=== PATIENT | male | born 1965 | race African-American/Black ===

== ENCOUNTER 2017-03-17 13:33 | Emergency (ER) | payer OTHER ==
[~2017-03-17] VITALS: Ht 185.4 cm; Wt 59.9 kg
[2017-03-17] MEDS ORDERED: Morphine Sulfate 2mg/ml Inj IVP ONE (13:45)
[2017-03-17] MEDS ORDERED: NKM (13:49)
--- NOTE | 2017-03-17 13:52 | Emergency Room Report ---
History of Present Illness General Chief Complaint: Pain Source: Patient Present Illness HPI Patient presents with lower extremity pain. He states his happens when the weather changes. He states he's been taking Tylenol which hasn't been helping him. In the past he's had Bruce. He's not had Bruce for the last 2 years. He denies fevers, nausea, vomiting, cough, dyspnea, chest pain, abdominal pain. He states the pain is severe from the thighs down to his knee. Constant. The pain is an ache which is constant. 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 He wears a condom cath. He denies any change in his urine. No fevers, dyspnea, cough, sore throat, rashes (states skin not broken down). No depression. No swelling of calves. Allergies: Coded Allergies: No Known Allergies (Unverified , 03/17/17) Patient History Past Medical History: see triage record Past Surgical History: other - C4 quad post accident Social History: Denies: smoking, alcohol use, drug use Social History Narrative at home Reviewed Nursing Documentation: PMH: Agreed, PSxH: Agreed Review of Systems All Other Systems: negative except mentioned in HPI Physical Exam Vital Signs Date Time Temp Pulse Resp B/P (MAP) Pulse Ox O2 Delivery O2 Flow Rate FiO2 03/17/17 13:47 22 Room Air 03/17/17 14:36 98.0 56 112/74 98 Sp02 EP Interpretation: reviewed, normal General Appearance: GCS 15, thin, Chronically Ill Head: normocephalic Eyes: bilateral eye normal inspection, bilateral eye PERRL ENT: moist mucus membranes Neck: supple Respiratory: lungs clear, normal breath sounds Cardiovascular #1: regular rate, rhythm Cardiovascular #2: 2+ radial (R) Gastrointestinal: normal inspection, normal bowel sounds, non tender, no mass, non-distended Genitourinary: other - condom cath Musculoskeletal: other - Extensor contractures hands, flexor contractures ankels. All muscle groups with atrophy. Neurologic: alert, oriented x3, motor weakness - quadriplegia, sensory deficit - c4 level Psychiatric: mood/affect normal Reflexes: 3+ knee (R), 3+ knee (L) - with clonus and spasticity Skin: normal inspection, warm/dry Medical Decision Making Diagnostic Impression: Primary Impression: Bilateral leg pain Additional Impressions: c4 quadriplgia complete Pyuria ER Course Patient presents with lower extremity pain. Differential includes DVT, cellulitis, exacerbation of chronic pain, abdominal pathology amongst others. Evaluation will be with abdominal films, urinalysis and labs. The patient be treated with IV hydration, Zofran and morphine. Labs unremarkable. UA with pyuria, but collected from condom cath. Abd films with in gas throughout bowels. Improved with norco. Discussed culture of urine and as lack of sy - await results before consider antibiotics. Patient stable for outpatient observation and treatment. Laboratory Tests Test 03/17/17 14:30 White Blood Count 8.3 K/UL (4.8-10.8) Red Blood Count 4.45 M/UL (4.70-6.10) L Hemoglobin 13.1 G/DL (14.2-18.0) L Hematocrit 41.0 % (42.0-52.0) L Mean Corpuscular Volume 92 FL (80-99) Mean Corpuscular Hemoglobin 29.4 PG (27.0-31.0) Mean Corpuscular Hemoglobin Concent 31.9 G/DL (32.0-36.0) L Red Cell Distribution Width 13.7 % (11.6-14.8) Platelet Count 251 K/UL (150-450) Mean Platelet Volume 6.1 FL (6.5-10.1) L Neutrophils (%) (Auto) 68.5 % (45.0-75.0) Lymphocytes (%) (Auto) 19.5 % (20.0-45.0) L Monocytes (%) (Auto) 6.6 % (1.0-10.0) Eosinophils (%) (Auto) 4.8 % (0.0-3.0) H Basophils (%) (Auto) 0.7 % (0.0-2.0) Prothrombin Time 10.2 SEC (9.30-11.50) Prothrombin Time INR 1.0 (0.9-1.1) PTT 32 SEC (23-33) Urine Color Pale yellow Urine Appearance Slightly cloudy Urine pH 6.5 (4.5-8.0) Urine Specific [place] 1.005 (1.005-1.035) Urine Protein Negative (NEGATIVE) Urine Glucose (UA) Negative (NEGATIVE) Urine Ketones Negative (NEGATIVE) Urine Occult Blood Negative (NEGATIVE) Urine Nitrite Positive (NEGATIVE) H Urine Bilirubin Negative (NEGATIVE) Urine Urobilinogen Normal MG/DL (0.0-1.0) Urine Leukocyte Esterase 3+ (NEGATIVE) H Urine RBC 5-10 /HPF (0 - 0) H Urine WBC 5-10 /HPF (0 - 0) H Urine Squamous Epithelial Cells None /LPF (NONE/OCC) Urine Bacteria Many /HPF (NONE) H Sodium Level 140 MMOL/L (136-145) Potassium Level 3.9 MMOL/L (3.5-5.1) Chloride Level 107 MMOL/L (98-107) Carbon Dioxide Level 26 MMOL/L (21-32) Anion Gap 7 mmol/L (5-15) Blood Urea Nitrogen 8 mg/dL (7-18) Creatinine 0.6 MG/DL (0.55-1.30) Estimate Glomerular Filtration Rate > 60 mL/min (>60) Glucose Level 80 MG/DL (74-106) Calcium Level 8.2 MG/DL (8.5-10.1) L Total Bilirubin 1.2 MG/DL (0.2-1.0) H Direct Bilirubin 0.1 MG/DL (0.0-0.3) Aspartate Amino Transferase (AST) 16 U/L (15-37) Alanine Aminotransferase (ALT) 19 U/L (12-78) Alkaline Phosphatase 47 U/L (46-116) Total Protein 7.6 G/DL (6.4-8.2) Albumin 3.4 G/DL (3.4-5.0) Globulin 4.2 g/dL Albumin/Globulin Ratio 0.8 (1.0-2.7) L Lipase 124 U/L (73-393) Last Vital Signs Date Time Temp Pulse Resp B/P (MAP) Pulse Ox O2 Delivery O2 Flow Rate FiO2 03/17/17 16:13 98.0 74 16 114/86 98 Room Air Status: improved Disposition: HOME, SELF-CARE Condition: Improved Scripts Ibuprofen* (MOTRIN*) 600 Mg Tablet 600 MG ORAL Q6H Y for For Pain, #20 TAB Prov: Yoel Cano M.D. 03/17/17 Hydrocodone Bit/Acetaminophen 10-325* (NORCO 10-325*) 1 Each Tablet 1 TAB ORAL Q6H Y for For Pain, #14 TAB 0 Refills PRN PAIN Prov: Yoel Cano M.D. 03/17/17 Yoel Cano M.D. Mar 17, 2017 13:52
[2017-03-17] MEDS ORDERED: Norco 5mg/325mg tab ORAL ONE (14:00)
[2017-03-17] MEDS ORDERED: HYDROcodone/Acetamin 10/325 tab ORAL ONE (14:15)
[2017-03-17 14:36] VITALS: BP 112/74
[2017-03-17 14:46] LABS: BASOPHILS % (AUTO) 0.7 % (0.0-2.0); EOSINOPHILS % (AUTO) 4.8 % (0.0-3.0); HEMOGLOBIN 13.1 G/DL (14.2-18.0); LYMPHOCYTES % (AUTO) 19.5 % (20.0-45.0); MEAN CORPUSCULAR VOLUME 92 FL (80-99); MONOCYTES % (AUTO) 6.6 % (1.0-10.0); NEUTROPHILS % (AUTO) 68.5 % (45.0-75.0); PLATELET COUNT 251 K/UL (150-450); RED BLOOD COUNT 4.45 M/UL (4.70-6.10); RED CELL DISTRIBUTION WIDTH 13.7 % (11.6-14.8); WHITE BLOOD COUNT 8.3 K/UL (4.8-10.8)
[2017-03-17 14:58] LABS: ANION GAP 7 mmol/L (5-15); BLOOD UREA NITROGEN 8 mg/dL (7-18); CALCIUM 8.2 MG/DL (8.5-10.1); CARBON DIOXIDE 26 MMOL/L (21-32); CHLORIDE 107 MMOL/L (98-107); CREATININE 0.6 MG/DL (0.55-1.30); POTASSIUM 3.9 MMOL/L (3.5-5.1); SODIUM 140 MMOL/L (136-145)
[2017-03-17 15:07] LABS: APPEARANCE,URINE SLIGHTLY CLOUDY; BILIRUBIN, URINE NEGATIVE (NEGATIVE); COLOR,URINE PALE YELLOW; GLUCOSE, URINE (UA) NEGATIVE (NEGATIVE); KETONES,URINE NEGATIVE (NEGATIVE); LEUKOCYTE ESTERASE ,URINE 3+ (NEGATIVE); NITRITE,URINE POSITIVE (NEGATIVE); PH,URINE 6.5 (4.5-8.0); PROTEIN,URINE NEGATIVE (NEGATIVE); UROBILINOGEN,URINE NORMAL MG/DL (0.0-1.0)
[2017-03-17 15:09] LABS: ALANINE AMINOTRANSFERASE 19 U/L (12-78); ALBUMIN 3.4 G/DL (3.4-5.0); ALBUMIN/GLOBULIN RATIO 0.8 (1.0-2.7); ALKALINE PHOSPHATASE 47 U/L (46-116); ASPARTATE AMINO TRANSFERASE 16 U/L (15-37); BILIRUBIN,TOTAL 1.2 MG/DL (0.2-1.0)
[2017-03-17 15:10] LABS: BILIRUBIN,DIRECT 0.1 MG/DL (0.0-0.3)
[2017-03-17] MEDS ORDERED: NORCO 10-325 T1 EACH ORAL (15:57)
[2017-03-17] MEDS ORDERED: IBUPROFEN600 MG ORAL (15:57)
[2017-03-17 16:04] VITALS: BP 114/86
[2017-03-17 16:13] VITALS: BP 114/86
--- NOTE | 2017-03-20 14:57 | Diagnostic Imaging Report ---
Indication: Abdominal pain Technique: Supine views of the abdomen Comparison: None Findings: Bowel gas pattern is nonspecific. There is gaseous distention of small bowel. Stool and gas are noted in the colon. There is a chronic-appearing dislocation and deformity of the right hip. There is also chronic-appearing deformity of the left hip with ossification adjacent to the trochanter. Stent projects over the pubic symphysis. Impression: Nonspecific bowel gas pattern. Gaseous distention of small bowel. Stool and gas also noted throughout the colon. Clinical correlation/follow-up recommended. Other findings as above.
[2017-03-21] MEDS ORDERED: KEFLEX500 MG ORAL (09:13)
== END 2017-03-17 16:19 | disposition home or self-care (01) ==
LOC: EMR 14:45
DX: M79.605 Pain in left leg (principal); M79.604 Pain in right leg; G82.50 Quadriplegia, unspecified; R35.8 Other polyuria
CPT/HCPCS: 36415; 74018; 80053; 81003; 82248; 83690; 85025; 85610; 85730; 87086; 87181; 96374; 99284

== ENCOUNTER 2018-05-07 14:30 | Inpatient (IN) | payer OTHER ==
[~2018-05-07] VITALS: Ht 185.4 cm; Wt 55.4 kg
[~2018-05-07 14:30] MED LIST: IBUPROFEN600 MG ORAL; KEFLEX500 MG ORAL; NKM; NORCO 10-325 T1 EACH ORAL
--- NOTE | 2018-05-07 14:49 | NUR ---
ED Nurse Note: Pt came into the Er w/ complaints of left hip pain since . Pt is rating the pain an 8/10. Non radiating. Pt states that while he was getting dressed on he heard a "pop" on that side and yesterday, he could not lay on the left side. Pt is A + O x4. Hx of quadraplegia.
[2018-05-07] MEDS ORDERED: Ketorolac 30mg Inj IV ONE (15:00)
[2018-05-07 15:01] VITALS: BP 134/98
--- NOTE | 2018-05-07 15:42 | NUR ---
ED Nurse Note: Xray at the bedside.
[2018-05-07 15:43] LABS: BASOPHILS % (AUTO) 1.6 % (0.0-2.0); EOSINOPHILS % (AUTO) 5.4 % (0.0-3.0); HEMOGLOBIN 13.5 G/DL (14.2-18.0); LYMPHOCYTES % (AUTO) 23.9 % (20.0-45.0); MEAN CORPUSCULAR VOLUME 92 FL (80-99); NEUTROPHILS % (AUTO) 62.1 % (45.0-75.0); PLATELET COUNT 238 K/UL (150-450); RED BLOOD COUNT 4.47 M/UL (4.70-6.10); RED CELL DISTRIBUTION WIDTH 13.1 % (11.6-14.8); WHITE BLOOD COUNT 7.7 K/UL (4.8-10.8)
[2018-05-07 15:59] LABS: ANION GAP 10 mmol/L (5-15); BLOOD UREA NITROGEN 19 mg/dL (7-18); CALCIUM 9.5 MG/DL (8.5-10.1); CARBON DIOXIDE 27 MMOL/L (21-32); CHLORIDE 106 MMOL/L (98-107); CREATININE 0.6 MG/DL (0.55-1.30); SODIUM 142 MMOL/L (136-145)
[2018-05-07 16:10] LABS: ALANINE AMINOTRANSFERASE 26 U/L (12-78); ALBUMIN 3.5 G/DL (3.4-5.0); ALBUMIN/GLOBULIN RATIO 0.8 (1.0-2.7); ALKALINE PHOSPHATASE 59 U/L (46-116); ASPARTATE AMINO TRANSFERASE 24 U/L (15-37); BILIRUBIN,TOTAL 0.8 MG/DL (0.2-1.0); CKMB 0.6 NG/ML (0.0-3.6); CREATINE KINASE 75 U/L (26-308)
[2018-05-07 16:48] LABS: APPEARANCE,URINE VERY CLOUDY; BILIRUBIN, URINE NEGATIVE (NEGATIVE); COLOR,URINE PALE YELLOW; GLUCOSE, URINE (UA) NEGATIVE (NEGATIVE); KETONES,URINE NEGATIVE (NEGATIVE); LEUKOCYTE ESTERASE ,URINE 3+ (NEGATIVE); NITRITE,URINE NEGATIVE (NEGATIVE); PH,URINE 7 (4.5-8.0); PROTEIN,URINE 2+ (NEGATIVE); UROBILINOGEN,URINE NORMAL MG/DL (0.0-1.0)
--- NOTE | 2018-05-07 16:55 | Diagnostic Imaging Report ---
Indication: Reason For Exam: PAIN Technique: 2 views of the left hip Comparison: none Findings: The bones are osteoporotic. There is considerable heterotopic new bone, particularly in the region of the lesser trochanter. Prosthetic lesion inferior to the lesser trochanter may reflect an osteochondroma or heterotopic new bone. There is questionably a lucency along the intertrochanteric region, although this could also represent overlying soft tissue shadows. There is some deformity of the femoral head. The acetabulum and pubic bones appear intact. There is what is presumably a proximal ureteral stent. Chronically dislocated right hip is better seen on plain radiograph of 03/17/2017 Impression: No definite acute bony trauma. However, subtle nondisplaced intertrochanteric fracture cannot be completely ruled out. Consider CT for further evaluation if there is high clinical suspicion Extensive chronic changes as described. Per discussion with Dr. Delacruz, patient has long-standing history of quadriplegia
--- NOTE | 2018-05-07 16:56 | Diagnostic Imaging Report ---
Indication: Shortness of breath Technique: One view of the chest Comparison: none Findings: There is thoracic scoliotic deformity. No definite acute infiltrates, effusions, congestion. The heart is upper limits normal in size Impression: No definite acute process
[2018-05-07 17:12] VITALS: BP 121/87
--- NOTE | 2018-05-07 17:47 | NUR ---
ED Nurse Note: Pt went down to CT.
--- NOTE | 2018-05-07 18:05 | NUR ---
ED Nurse Note: Pt back from CT.
--- NOTE | 2018-05-07 19:04 | NUR ---
HAND-OFF: Report given to ASHLEE Smith.
--- NOTE | 2018-05-07 19:10 | NUR ---
ED Nurse Note: Received Pt and report from day shift. Pt is AO x 4times, VSS, on room air no distress when visited. Family is on bedside.
--- NOTE | 2018-05-07 19:18 | Emergency Room Report ---
History of Present Illness General Chief Complaint: Pain Source: Patient Present Illness HPI This patient has a history of quadriplegia. He states that he has had pain in his left hip ever since getting dressed yesterday. He states that he doesn't really feel pain usually given his condition, however, he states that he does have pain on this side when he lays on that side and also gets sweating. He denies recent illness. He denies fever or chills. He denies cough or congestion. He denies trauma. He has no other complaints. Allergies: Coded Allergies: No Known Allergies (Unverified , 03/17/17) Patient History Past Medical History: none - Quadraplegia, see triage record Social History: Denies: smoking, alcohol use, drug use Reviewed Nursing Documentation: PMH: Agreed; PSxH: Agreed Nursing Documentation-PMH Past Medical History: No History, Except For Hx Neurological Problems: Yes - quadraplegia Review of Systems All Other Systems: negative except mentioned in HPI Physical Exam Vital Signs Date Time Temp Pulse Resp B/P (MAP) Pulse Ox O2 Delivery O2 Flow Rate FiO2 05/07/18 14:49 97.5 88 16 72/50 96 Room Air Sp02 EP Interpretation: reviewed, normal General Appearance: no apparent distress, alert, GCS 15, non-toxic Head: normocephalic, atraumatic Eyes: bilateral eye normal inspection, bilateral eye PERRL ENT: hearing grossly normal, normal pharynx, no angioedema, normal voice Neck: full range of motion, supple/symm/no masses Respiratory: chest non-tender, lungs clear, normal breath sounds, no respiratory distress, no retraction, no accessory muscle use, speaking full sentences Cardiovascular #1: regular rate, rhythm, no edema Gastrointestinal: normal bowel sounds, non tender, soft, non-distended, no guarding, no rebound Rectal: deferred Musculoskeletal: other - Contracted, atrophy Neurologic: alert, oriented x3, responsive, speech normal, other - Quadraplegia at baseline. Psychiatric: judgement/insight normal, memory normal, mood/affect normal, no suicidal/homicidal ideation Skin: warm/dry, well hydrated, other - Decubitus ulcers Medical Decision Making Diagnostic Impression: Primary Impression: Pyuria Additional Impression: Pyelonephritis ER Course The patient had primarily complained of left hip pain. However, I did not identify any acute findings of the hip. He underwent left hip x-ray and left hip CT. There was no acute fracture identified. Patient has chronic degenerative changes. Patient was found to have pyuria on urinalysis. Given the patient's sweating and pain in the setting of quadriplegia with the pyuria, I did give the patient IV antibiotics for concern of resistance. He will also be admitted for further monitoring, evaluation and treatment. Of note, the patient's blood pressure was low on arrival. The patient states that this is normal for him. After IV fluids the patient systolics were in the low 100's. Laboratory Tests Test 05/07/18 15:10 05/07/18 16:30 White Blood Count 7.7 K/UL (4.8-10.8) Red Blood Count 4.47 M/UL (4.70-6.10) L Hemoglobin 13.5 G/DL (14.2-18.0) L Hematocrit 41.0 % (42.0-52.0) L Mean Corpuscular Volume 92 FL (80-99) Mean Corpuscular Hemoglobin 30.1 PG (27.0-31.0) Mean Corpuscular Hemoglobin Concent 32.9 G/DL (32.0-36.0) Red Cell Distribution Width 13.1 % (11.6-14.8) Platelet Count 238 K/UL (150-450) Mean Platelet Volume 5.5 FL (6.5-10.1) L Neutrophils (%) (Auto) 62.1 % (45.0-75.0) Lymphocytes (%) (Auto) 23.9 % (20.0-45.0) Monocytes (%) (Auto) 7.0 % (1.0-10.0) Eosinophils (%) (Auto) 5.4 % (0.0-3.0) H Basophils (%) (Auto) 1.6 % (0.0-2.0) Prothrombin Time 10.8 SEC (9.30-11.50) Prothrombin Time INR 1.0 (0.9-1.1) PTT 32 SEC (23-33) Sodium Level 142 MMOL/L (136-145) Potassium Level 4.0 MMOL/L (3.5-5.1) Chloride Level 106 MMOL/L (98-107) Carbon Dioxide Level 27 MMOL/L (21-32) Anion Gap 10 mmol/L (5-15) Blood Urea Nitrogen 19 mg/dL (7-18) H Creatinine 0.6 MG/DL (0.55-1.30) Estimate Glomerular Filtration Rate > 60 mL/min (>60) Glucose Level 69 MG/DL (74-106) L Lactic Acid Level 1.00 mmol/L (0.4-2.0) Calcium Level 9.5 MG/DL (8.5-10.1) Total Bilirubin 0.8 MG/DL (0.2-1.0) Aspartate Amino Transferase (AST) 24 U/L (15-37) Alanine Aminotransferase (ALT) 26 U/L (12-78) Alkaline Phosphatase 59 U/L (46-116) Total Creatine Kinase 75 U/L (26-308) Creatine Kinase MB 0.6 NG/ML (0.0-3.6) Creatine Kinase MB Relative Index 0.8 Troponin I 0.000 ng/mL (0.000-0.056) Total Protein 7.8 G/DL (6.4-8.2) Albumin 3.5 G/DL (3.4-5.0) Globulin 4.3 g/dL Albumin/Globulin Ratio 0.8 (1.0-2.7) L Urine Color Pale yellow Urine Appearance Very cloudy Urine pH 7 (4.5-8.0) Urine Specific [place] 1.010 (1.005-1.035) Urine Protein 2+ (NEGATIVE) H Urine Glucose (UA) Negative (NEGATIVE) Urine Ketones Negative (NEGATIVE) Urine Blood 5+ (NEGATIVE) H Urine Nitrite Negative (NEGATIVE) Urine Bilirubin Negative (NEGATIVE) Urine Urobilinogen Normal MG/DL (0.0-1.0) Urine Leukocyte Esterase 3+ (NEGATIVE) H Urine RBC 5-10 /HPF (0 - 0) H Urine WBC Tntc /HPF (0 - 0) H Urine Squamous Epithelial Cells None /LPF (NONE/OCC) Urine Triple Phosphate Crystals Few /LPF (NONE) H Urine Bacteria Many /HPF (NONE) H EKG Diagnostic Results Rate: normal Rhythm: NSR ST Segments: no acute changes Rhythm Strip Diag. Results EP Interpretation: yes Rate: 80's Rhythm: NSR, no PVC's, no ectopy Other X-Ray Diagnostic Results Other X-Ray Diagnostic Results : X-Ray ordered: L. hip # of Views/Limited Vs Complete: Complete Indication: Pain EP Interpretation: No Interpretation: no dislocation, no soft tissue swelling, no fractures Impression: No acute disease Electronically Signed by: Alejandra Brock DO CT/MRI/US Diagnostic Results CT/MRI/US Diagnostic Results : Imaging Test Ordered: CT L. hip Impression No acute fracture roger dislocation. See official report for other findings. Last Vital Signs Date Time Temp Pulse Resp B/P (MAP) Pulse Ox O2 Delivery O2 Flow Rate FiO2 05/07/18 17:12 97.8 80 14 121/87 99 Room Air Disposition: ADMITTED INPATIENT Condition: Serious Referrals: [facility] [place]ERR[place] (PCP) Alejandra Brock DO May 07, 2018 19:18
[2018-05-07] MEDS ORDERED: Cefepime HCl 1 GM in D5W 55 ML IVPB ONE (19:30)
--- NOTE | 2018-05-07 21:22 | NUR ---
ED Nurse Note: Pt will admit to 3E, client care manager will stay for him. Franck Casey [phone]
--- NOTE | 2018-05-07 21:35 | NUR ---
NURSE NOTES: Received patient from ER via [place], report given by Luis ROSADO via phone, patient is AOx4, no s/s of any distress, complaints of left hip pain, 06/19. Patient is quadriplegic accompanied by caregiver, motorized wheelchair at bedside. IV line patent and intact, patient belongings checked and verified, oriented to room and discussed safety, verbalized understanding.Bed in lowest position and locked, admission order given by Dr. Sandoval, will continue to monitor.
--- NOTE | 2018-05-07 21:38 | NUR ---
ED Nurse Note: Message left to Dr Sandoval for admit orders, await for respond back.
[2018-05-07 22:30] VITALS: BP 139/88
--- NOTE | 2018-05-07 22:40 | NUR ---
ED Nurse Note: Pt admited 4E 411-2. Belongings and skin issue report given to ASHLEE Campbell. Pt is AO x 4times, VSS, on room air no distress. solution mixer is on bedside.
[2018-05-08] VITALS: BP 123/83
[2018-05-08] MEDS ORDERED: Acetaminophen 500mg (ES) tab ORAL PRN
[2018-05-08 04:00] VITALS: BP 121/76
[2018-05-08 07:00] LABS: BASOPHILS % (AUTO) 0.9 % (0.0-2.0); EOSINOPHILS % (AUTO) 7.2 % (0.0-3.0); HEMATOCRIT 33.5 % (42.0-52.0); HEMOGLOBIN 10.9 G/DL (14.2-18.0); LYMPHOCYTES % (AUTO) 25.9 % (20.0-45.0); MEAN CORPUSCULAR VOLUME 92 FL (80-99); MONOCYTES % (AUTO) 9.5 % (1.0-10.0); NEUTROPHILS % (AUTO) 56.5 % (45.0-75.0); PLATELET COUNT 207 K/UL (150-450); RED BLOOD COUNT 3.64 M/UL (4.70-6.10); RED CELL DISTRIBUTION WIDTH 13.1 % (11.6-14.8); WHITE BLOOD COUNT 5.3 K/UL (4.8-10.8)
--- NOTE | 2018-05-08 07:11 | NUR ---
NURSE NOTES: Patient alert x4, on room air, no sign of shortness of breath or distress; no sign of chest pain; condom cath in place; patient's own wheel chair at the bed side; left buttock stage II dressing dry and intact; bed at lowest position, side rails up x2, breaks engaged; IV LAC running NS 75 cc. Call light within reach, care give at the bed side. Will keep monitoring.
--- NOTE | 2018-05-08 07:11 | NUR ---
HAND-OFF: Report given to Kati ROSADO.
[2018-05-08 07:25] LABS: ALANINE AMINOTRANSFERASE 24 U/L (12-78); ALBUMIN 2.8 G/DL (3.4-5.0); ALBUMIN/GLOBULIN RATIO 0.8 (1.0-2.7); ALKALINE PHOSPHATASE 50 U/L (46-116); ANION GAP 9 mmol/L (5-15); ASPARTATE AMINO TRANSFERASE 19 U/L (15-37); BILIRUBIN,TOTAL 0.5 MG/DL (0.2-1.0); BLOOD UREA NITROGEN 19 mg/dL (7-18); CALCIUM 8.1 MG/DL (8.5-10.1); CARBON DIOXIDE 24 MMOL/L (21-32); CHLORIDE 110 MMOL/L (98-107); CREATININE 0.5 MG/DL (0.55-1.30); POTASSIUM 3.8 MMOL/L (3.5-5.1); SODIUM 143 MMOL/L (136-145)
[2018-05-08 08:00] VITALS: BP 137/96
--- NOTE | 2018-05-08 09:42 | Diagnostic Imaging Report ---
Indication: Hip pain Technique: continuous helical imaging in the transaxial plane was performed from the iliac crests to the pubic symphysis with attention to the left hip. Coronal 2-D reformatted images were also generated. Study obtained in a Siemens Sensation [address] total DLP: 338.96 mGycm CTD/vol: 10.98 mGy Comparison: None Findings: There is lateral subluxation of the left hip joint. Extensive heterotopic bone demonstrated medial aspect of the left hip joint in association with the lesser trochanter. There is also heterotopic bone in the area of the left anterior superior and anterior inferior iliac spine forming a pseudoarthrosis with the anterior aspect the left acetabulum. There is no acute fracture identified. Partial, Limited evaluation of the right hip shows a chronic dislocation. There is also extensive heterotopic bone within the right acetabulum. Decubitus ulceration noted posterior to the left ischium seen is area of absent subcutaneous fat, thickened skin and abnormal focal soft tissue attenuation. There is a large amount of stool within the rectum and visualized colon. Thickening of the wall of the rectum noted. Perirectal soft tissue stranding which includes the presacral region noted. Prostate is enlarged. There is some thickening of the wall the urinary bladder. There is a stent within the prostatic urethra. IMPRESSION: No acute fracture identified. 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 Chronic dislocation of the right hip. Left posterior decubitus ulceration. Correlate for osteomyelitis. Prostate hypertrophy. Prostate ureteral stent. [facility] has communicated the preliminary results to the Emergency Department. Their findings are largely concordant with this report. The CT scanner at [facility] is accredited by the [employer] and the scans are performed using dose optimization techniques as appropriate to a performed exam including Automatic Exposure control.
--- NOTE | 2018-05-08 10:33 | NUR ---
NURSE NOTES: I called [facility] to order SCD and spoke to Thompson. Waiting for SCD. Wound care nurse, Precious ordered pressure release matters. Waiting for the mattress.
--- NOTE | 2018-05-08 10:51 | NUR ---
NURSE NOTES: Wound care nurse, Precious, recommended a wound dressing care on the heels and alissa reza, communicated Dr Sandoval regarding the matter.
--- NOTE | 2018-05-08 11:51 | NUR ---
RD ASSESSMENT & RECOMMENDATIONS SEE CARE ACTIVITY FOR COMPLETE ASSESSMENT DAILY ESTIMATED NEEDS: Needs based on Quadriplegia, underweight 58.6 25-30 kcals/kg 9147-1184 total kcals 1.25-1.5 g protein/kg 73-88 g total protein 25-30 mL/kg 7743-4970 total fluid mLs NUTRITION DIAGNOSIS: Increased kcal and protein needs r/t underweight status and wound healing as evidenced by pt is quadriplegic, BMI 17.1, 70% of [place] Body Weight, w/ resolving full thickness L ischial wound, as per WC specialist. CURRENT DIET: Regular PO DIET RECOMMENDATIONS: REGULAR DIET ADDITIONAL RECOMMENDATIONS: 1) Calibrated weekly weights 2) Add ENSURE ENLIVE 1 bottle daily 3) Add snacks in b/w meals 4) WOUND CARE: Add ZACHARIAH BID + MVI x1 + Vit C 500mg daily 5) Monitor BG, pt w/ episode of hypoglycemia (BG 69)
[2018-05-08 12:00] VITALS: BP 132/66
--- NOTE | 2018-05-08 14:12 | NUR ---
[employer] TECH 52 YO MALE FROM HOME TO ER CC PAIN LEFT HIP 10/19 SI: PYELONEPHRITIS T. 97.6 HR 88 RR 16 B/P 72/50 BUN 19 UA+ PROTEIN,RBC,WBC,BACTERIA,LEUKOCYTE ESTERASE XRAY LEFT HIP=NO ACUTE BONY TRAUMA CT LEFT HIP= NO FRACTURE CXR= NO ACUTE PROCESS IS: IV BOLUS NS X 1 LITER TORADOL IV CEFEPIME IV ADMITTED TO MED/SURG @ 2200 MED/SURG STATUS DCP RETURN HOME
--- NOTE | 2018-05-08 14:30 | NUR ---
NURSE NOTES: I called pharmacy to get Cefepime, still waiting.
--- NOTE | 2018-05-08 14:56 | NUR ---
*-* INSURANCE *-* ALL CLINICALS AND REVIEWS FAXED TO: SAUL RUCKER NO FURNITURE REPAIR TECHNICIAN ASSIGNED AT THIS TIME PLEASE FAX THE REVIEW/CLINICAL P- [phone] F- [phone]
[2018-05-08] MEDS: Cefepime HCl 1 GM in D5W 55 ML IVPB SCH ×2 (15:20→20:56)
--- NOTE | 2018-05-08 15:42 | NUR ---
NURSE NOTES:Pt presented on admission with resolving full thickness pressure injury to L ischium .Wound bed is moist -viable ,surrounding pink epithelial tissue(L)4.9cm x(W)4cm.Edges adherent and flat. No odor or exudate noted. Pt stated wound is a stage 4 and has frequently closed and reopened over course of several years. Scarring from previous pressure injuries noted to both scapulae, sacrum ,R ischium,R hip ,both heels and over malleoli both feet.Bilat foot drop noted. Recommendations:Apply Moisture barrier paste to L Ischium. Cover with Optifoam drsg. Change every 3 days and prn. Apply Cavilon Skin Barrier to both hips ,sacrum ,medial aspects of both knees .Cover each area with Optifoam drsg .Change every 7 days and prn. Apply Cavilon Skin Barrier to Malleoli ,and heels both feet .Cover each site with Optifoam drsgs. Change every 7 days and prn. APM/LINDA mattress. Reposition at least every 2hours or as tolerated. Off-load heels with pillow.
[2018-05-08 16:00] VITALS: BP 146/94
--- NOTE | 2018-05-08 17:36 | Cardiology Report ---
APPROVED REPORT EKG Measurement Heart [id number] Normal sinus rhythm with sinus arrhythmia Biatrial enlargement Septal infarct, age undetermined Abnormal ECG
--- NOTE | 2018-05-08 19:17 | NUR ---
HAND-OFF: Report given to ASHLEE Harding.
--- NOTE | 2018-05-08 19:17 | NUR ---
NURSE NOTES: Received patient on bed awake, no s/s of any distress, denies any pain as of this time, IV line patent and intact, bed in low position and locked, will continue to monitor.
[2018-05-08 20:00] VITALS: BP 143/92
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
[2018-05-08] MEDS ORDERED: Tamsulosin 0.4mg cap ORAL SCH (21:00)
--- NOTE | 2018-05-08 22:45 | History and Physical Report ---
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 He was initially hypotensive, but BP improved with hydration. The patient is being admitted for pyelonephritis. The patient generally also came for left hip pain. Denies chills. Denies nausea, vomiting, or diarrhea. Denies flank pain. No orthopnea or cough. PAST MEDICAL HISTORY: Significant for quadriplegia due to trauma. PAST SURGICAL HISTORY: None. ALLERGIES: No known allergies. SOCIAL HISTORY: Lives at home with a caregiver. Denies history of smoking. Denies history of alcohol abuse. Does have history of marijuana use. MEDICATIONS: He takes pain medication. FAMILY HISTORY: Noncontributory. REVIEW OF SYSTEMS: HEENT: Denies headaches. RESPIRATORY: Denies shortness of breath. Denies cough. CARDIOVASCULAR: Denies chest pain. No orthopnea. GASTROINTESTINAL: Denies nausea, vomiting, or diarrhea. EXTREMITIES: Did have left hip pain when he came into the hospital. The patient is quadriplegic. PHYSICAL EXAMINATION: VITAL SIGNS: Temperature 97.5, pulse 60, and blood pressure 121/76. HEENT: PERRLA. NECK: Supple. No lymphadenopathy. CHEST: Clear to auscultation CARDIOVASCULAR: Regular rate and rhythm. No murmurs or extra sounds. GASTROINTESTINAL: Soft, nontender, and nondistended. No organomegaly. EXTREMITIES: No edema. The patient is quadriplegic. SKIN: For skin integrity, please refer to the nursing notes. LABORATORY DATA: WBC 10.7, hemoglobin 13.5, and platelets 238. Sodium 142, potassium 4, BUN 19, and creatinine 0.6. Glucose 69. ASSESSMENT AND PLAN: Pyelonephritis, urinary tract infection, and quadriplegia. I have asked Dr. Claire and Dr. Osman Hampton to see the patient for the above-mentioned diagnoses and treatment. Dr. Claire will help with management of hypotension and dehydration. Dr. Hampton will be also helping with the antibiotic choice. Faustina Sandoval M.D. DR: SILVANA JOB#: [id number] CC:
[2018-05-09] VITALS: BP 133/89
[2018-05-09 04:00] VITALS: BP 93/63
--- NOTE | 2018-05-09 07:24 | NUR ---
HAND-OFF: Report given to Samina ROSADO.
--- NOTE | 2018-05-09 07:45 | NUR ---
NURSE NOTES: Report received from ASHLEE Quintana. Pt in bed, awake, bedbound, A/Ox4 talkative, caregiver at bedside feeding pt, no complaints of pain, no distress noted, bed in lowest position, call light within reach.
[2018-05-09 08:00] VITALS: BP 123/78
[2018-05-09] MEDS: Cefepime HCl 1 GM in D5W 55 ML IVPB SCH (08:35)
[2018-05-09 11:59] VITALS: BP 143/95
[2018-05-09 12:00] VITALS: BP 143/92
--- NOTE | 2018-05-09 13:09 | Infectious Diseases Prog Note ---
Assessment/Plan Assessment/Plan A; UTI, likely cystitis. BPH. quadriplegia neurogenic bladder anemia. P: Continue Cefepime Will f/u cultures Subjective ROS Limited/Unobtainable: No Constitutional: Reports: no symptoms Respiratory: Reports: no symptoms Cardiovascular: Reports: no symptoms Gastrointestinal/Abdominal: Reports: no symptoms Genitourinary: Reports: no symptoms Allergies: Coded Allergies: No Known Allergies (Unverified , 03/17/17) Objective Vital Signs Last 24 Hour Vital Signs Date Time Temp Pulse Resp B/P (MAP) Pulse Ox O2 Delivery O2 Flow Rate FiO2 05/09/18 12:00 98.9 65 19 143/92 (109) 98 05/09/18 11:59 98.9 65 19 143/95 (111) 98 05/09/18 09:00 Room Air 05/09/18 08:00 97.7 84 19 123/78 (93) 97 05/09/18 04:00 98.6 76 18 93/63 (73) 98 05/09/18 00:00 98.8 62 16 133/89 (104) 100 05/08/18 21:00 Room Air 05/08/18 20:00 99.1 67 16 143/92 (109) 97 05/08/18 16:00 99.5 60 19 146/94 (111) 99 Height (Feet): 6 Height (Inches): 1.00 Weight (Pounds): 122 General Appearance: no acute distress HEENT: mucous membranes moist Respiratory/Chest: lungs clear Cardiovascular: normal rate Abdomen: soft, non tender Extremities: no edema Skin: ulcers, other - healing Neurologic/Psychiatric: alert, responsive, other - Quariplegia Microbiology Date/Time Source Procedure Growth Status 05/07/18 15:10 Blood Blood Culture - Preliminary NO GROWTH AFTER 24 HOURS Resulted 05/07/18 14:55 Blood Blood Culture - Preliminary NO GROWTH AFTER 24 HOURS Resulted 05/07/18 16:30 Urine,Clean Catch Urine Culture - Preliminary Gram Negative Uriel Strep Species, Gamma-Hemolytic Resulted Current Medications Medications (Trade) Dose Ordered Sig/Timmy Route PRN Reason Start Time Stop Time Status Last Admin Dose Admin Acetaminophen (Tylenol) 500 mg Q4H PRN ORAL Mild Pain/Temp > 100.5 05/08/18 00:00 06/07/18 00:00 05/08/18 00:12 Cefepime HCl 1 gm/ Dextrose 55 ml @ 110 mls/hr EVERY 12 HOURS IVPB 05/08/18 14:00 05/15/18 13:59 05/09/18 08:35 Sodium Chloride 1,000 ml @ 75 mls/hr [id number] IV 05/08/18 00:00 06/07/18 00:00 05/09/18 00:58 Tamsulosin HCl (Flomax) 0.8 mg BEDTIME ORAL 05/08/18 21:00 06/07/18 20:59 05/08/18 20:55 Osman Hampton MD May 09, 2018 13:09
--- NOTE | 2018-05-09 13:56 | NUR ---
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 98.9 HR 65 RR 19 B/P 143/92 RA 98% IS: IVF NS @ 75ML/HR CEFEPIME IV FLOMAX PO MED/SURG STATUS
--- NOTE | 2018-05-09 14:09 | General Progress Note ---
Assessment/Plan Status: progressing Assessment/Plan afebrile nac quardriplegia uti abx per id dc if ok w id Subjective ROS Limited/Unobtainable: Yes Constitutional: Reports: no symptoms Allergies: Coded Allergies: No Known Allergies (Unverified , 03/17/17) Objective Last 24 Hour Vital Signs Date Time Temp Pulse Resp B/P (MAP) Pulse Ox O2 Delivery O2 Flow Rate FiO2 05/09/18 12:00 98.9 65 19 143/92 (109) 98 05/09/18 11:59 98.9 65 19 143/95 (111) 98 05/09/18 09:00 Room Air 05/09/18 08:00 97.7 84 19 123/78 (93) 97 05/09/18 04:00 98.6 76 18 93/63 (73) 98 05/09/18 00:00 98.8 62 16 133/89 (104) 100 05/08/18 21:00 Room Air 05/08/18 20:00 99.1 67 16 143/92 (109) 97 05/08/18 16:00 99.5 60 19 146/94 (111) 99 Intake and Output 05/08/18 05/09/18 19:00 07:00 Intake Total 1500 ml 880 ml Output Total 600 ml 800 ml Balance 900 ml 80 ml Intake Oral 600 ml IV Total 900 ml 880 ml Output Urine Total 600 ml 800 ml # Bowel Movements 2 Height (Feet): 6 Height (Inches): 1.00 Weight (Pounds): 122 EENT: PERRL/EOMI Neck: supple Cardiovascular: regular rhythm Respiratory/Chest: lungs clear Abdomen: soft Faustina Sandoval MD May 09, 2018 14:09
[2018-05-09 15:53] VITALS: BP 143/89
--- NOTE | 2018-05-09 16:00 | NUR ---
NURSE NOTES: Pt discharged home with all belongings and give Abx Rx. All discharge documentation signed by pt, pt eduction done. IV removed and ID band removed. Pt stable for discharge.
--- NOTE | 2018-05-10 11:06 | Discharge Summary ---
Discharge Summary Discharge Summary _ DATE OF ADMISSION: 05/07/2018 DATE OF DISCHARGE: 05/09/2018 DISCHARGED BY: Dr. Faustina Snider CONSULTANTS: Dr. Osman Hampton BRIEF HOSPITAL COURSE: Patient is a 52-year-old male, who is quadriplegic, presented to ED complaining of pain on the left hip. He stated he does not usually feel pain given his condition, however, he stated he has pain on the left side when he lays on that side. He denied recent illness. He denied fever or chills. He denied cough or congestion. He denied any trauma. On evaluation at ED, patient was hypotensive, blood pressure was 72/50, pulse rate 88. He had x-ray of the left hip and left hip CT. There was no acute fracture seen. Patient had chronic degenerative changes. Chest x-ray was also negative. Blood work was stable. Urinalysis showed 3+ leukocyte esterase, too many to count WBC, 5-10 RBC, 2+ protein, 5+ blood. He was noted to have pyuria and was admitted for pyelonephritis. ID was consulted. He was given cefepime pending culture results. Patient was quadriplegic and likely has neurogenic bladder. Urine culture showed growth of Proteus mirabilis which is pansensitive. There was no leukocytosis and patient was afebrile. He was eventually cleared for discharge home to continue p.o. antibiotics. FINAL DIAGNOSES: Proteus UTI BPH Quadriplegia Neurogenic bladder Anemia DISPOSITION: Patient was discharged home. DISCHARGE MEDICATIONS: Refer to Discharge Medication List. DISCHARGE INSTRUCTIONS: Follow-up in a week. I have been assigned to complete a discharge summary on this account, I was not involved with the patient's management. Sarah Card NP May 10, 2018 11:06
== END 2018-05-09 16:02 | disposition home or self-care (01) | DRG 463 ==
LOC: EMR 14:50 → 3E 20:52 → EDBEDREQ 21:07 → 4E 22:39
DX: N12 Tubulo-interstitial nephritis, not specified as acute or chronic (principal); G82.50 Quadriplegia, unspecified; I95.9 Hypotension, unspecified; N31.9 Neuromuscular dysfunction of bladder, unspecified; D64.9 Anemia, unspecified; N40.0 Benign prostatic hyperplasia without lower urinary tract symptoms; M25.552 Pain in left hip; B96.4 Proteus (mirabilis) (morganii) as the cause of diseases classified elsewhere
CPT/HCPCS: 36415; 71045; 73502; 80053; 81003; 82550; 82553; 83605; 84484; 85025; 85610; 85730; 87040; 87086; 87181; 93005; 96361; 96365; 96375; 99285

== ENCOUNTER 2019-09-06 17:13 | Emergency (ER) | payer MEDICAID, OTHER ==
[~2019-09-06] VITALS: Ht 185.4 cm; Wt 59.0 kg
[~2019-09-06 17:13] MED LIST changes: +CEPHALEXIN500 MG ORAL
--- NOTE | 2019-09-06 17:29 | NUR ---
ED Nurse Note: patient's BP noted 87/62, patient reports that is normal for him. notified to LAWRENCE Rey.
--- NOTE | 2019-09-06 17:35 | NUR ---
ED Nurse Note: urine specimen collected via straight cath, sent to labs.
[2019-09-06 17:43] VITALS: BP 87/62
[2019-09-06] MEDS ORDERED: Lidocaine 1% MPF 10mg/ml 5ml INJ ONE (18:00)
[2019-09-06] MEDS ORDERED: cefTRIAXone 500mg Inj IM ONE (18:00)
[2019-09-06 18:06] LABS: APPEARANCE,URINE CLOUDY; BILIRUBIN, URINE NEGATIVE (NEGATIVE); COLOR,URINE PALE YELLOW; GLUCOSE, URINE (UA) NEGATIVE (NEGATIVE); KETONES,URINE NEGATIVE (NEGATIVE); LEUKOCYTE ESTERASE ,URINE 3+ (NEGATIVE); NITRITE,URINE POSITIVE (NEGATIVE); PH,URINE 8 (4.5-8.0); PROTEIN,URINE 1+ (NEGATIVE); UROBILINOGEN,URINE NORMAL MG/DL (0.0-1.0)
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
[2019-09-06] MEDS ORDERED: CIPROFLOXACIN500 M2 ORAL (18:19)
[2019-09-06 18:43] VITALS: BP 87/62
--- NOTE | 2019-09-06 18:44 | NUR ---
ER DISCHARGE NOTE: Patient is cleared to be discharged per ERMD DR FLORES, pt is aox4, on room air, with stable vital signs. pt was given dc and prescription instructions, pt was able to verbalize understanding, pt id band removed without complications. pt left in a wheelechair by himself, pt took all belongings.
== END 2019-09-06 18:43 | disposition home or self-care (01) ==
LOC: EMR 17:20
DX: N39.0 Urinary tract infection, site not specified (principal); G82.50 Quadriplegia, unspecified; Z99.3 Dependence on wheelchair
CPT/HCPCS: 81003; 87086; 87181; 96372; J0696; Z7502; 99283

== ENCOUNTER 2020-04-02 13:23 | Inpatient (IN) | payer OTHER ==
[~2020-04-02] VITALS: Ht 185.4 cm; Wt 54.9 kg
[~2020-04-02 13:23] MED LIST changes: +CIPROFLOXACIN500 M2 ORAL
[2020-04-02 13:37] VITALS: BP 96/75
--- NOTE | 2020-04-02 13:37 | NUR ---
ED Nurse Note: Pt wheeled in to ED from home c/o painful urination onset yesterday. Pt reports chills, foul smell urine and cloudy urine x1 week. AAOx4, no SOB, on room air. No fever.
[2020-04-02 14:21] LABS: APPEARANCE,URINE CLEAR; BILIRUBIN, URINE NEGATIVE (NEGATIVE); COLOR,URINE PALE YELLOW; GLUCOSE, URINE (UA) NEGATIVE (NEGATIVE); KETONES,URINE 2+ (NEGATIVE); LEUKOCYTE ESTERASE ,URINE 1+ (NEGATIVE); NITRITE,URINE POSITIVE (NEGATIVE); PH,URINE 5 (4.5-8.0); PROTEIN,URINE NEGATIVE (NEGATIVE); UROBILINOGEN,URINE NORMAL MG/DL (0.0-1.0)
[2020-04-02] MEDS ORDERED: cefTRIAXone 1 GM in NS 55 ML IVPB ONE (14:45)
--- NOTE | 2020-04-02 15:35 | Emergency Room Report ---
History of Present Illness General Chief Complaint: Male Urogenital Problems Source: Patient (Margaret Toney) Present Illness HPI 54 YO Male presents to the ED in electric wheel chair c/o cloudy malodorous urine x2 days. Patient also reports chills. He reports history of frequent UTIs and states almost similar in presentation however he is concerned regarding the fevers and chills. He denies blood in the urine. Patient reports he is quadriplegic secondary to trauma, and uses a condom catheter. He denies nausea or vomiting. He Denies headache. he denies CP or SOB. He denies abdominal or flank pain. 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 COVID-19 Screening: Negative COVID-19 COVID-19 Testing Source: clinic (Margaret Toney) Patient History Past Medical History: see triage record, old chart reviewed Reviewed Nursing Documentation: PMH: Agreed; PSxH: Agreed (Margaret Toney) Nursing Documentation-PMH Hx Cardiac Problems: No Hx Cancer: No Hx Gastrointestinal Problems: No Hx Neurological Problems: Yes - quadraplegia due to injury (Margaret Toney) Review of Systems All Other Systems: negative except mentioned in HPI (Margaret Toney) Physical Exam Vital Signs Date Time Temp Pulse Resp B/P (MAP) Pulse Ox O2 Delivery O2 Flow Rate FiO2 04/02/20 13:33 98.6 101 19 96/75 (82) 98 Room Air Sp02 EP Interpretation: reviewed, normal General Appearance: no apparent distress, alert, GCS 15, non-toxic Head: normocephalic, atraumatic Eyes: bilateral eye normal inspection, bilateral eye PERRL ENT: hearing grossly normal, normal voice Respiratory: chest non-tender, lungs clear, normal breath sounds, speaking full sentences Cardiovascular #1: regular rate, rhythm, normal capillary refill Gastrointestinal: non tender, soft Musculoskeletal: non-tender, other - The patient is quadriplegic. electric wheel chair bound. significant muscle atrophy of all 4 extremities. contractures of the hands bilaterally. Neurologic: alert, oriented x3, sensory intact, responsive, speech normal Psychiatric: judgement/insight normal Skin: normal color, warm/dry (Margaret Toney) Medical Decision Making PA Attestation Dr. Alcantar is my supervising Physician whom patient management has been discussed with. (Margaret Toney) Diagnostic Impression: Primary Impression: UTI (urinary tract infection) Qualified Codes: N30.01 - Acute cystitis with hematuria Additional Impressions: Neurogenic bladder Quadriplegia ER Course 54 YO Male presents to the ED in electric wheel chair c/o cloudy malodorous urine x2 days. Patient also reports chills. He reports history of frequent UTIs and states almost similar in presentation however he is concerned regarding the fevers and chills. He denies blood in the urine. Patient reports he is quadriplegic secondary to trauma, and uses a condom catheter. He denies nausea or vomiting. He Denies headache. he denies CP or SOB. He denies abdominal or flank pain. Ddx considered but are not limited to UTi , Pyelonephritis, STI, Stone, Cystitis , urosepsis just to name a few. Vital signs: Pt. is tachycardic on arrival. remaining VS are WNL, pt. is afebrile H&PE are most consistent with UTI-- ORDERS: - UA labs are attached -- nitrite positive, presence of moderate bacteria. - CBC: 22.8 WBC's - BMP: WNL - Lactic Acid: 0.7 -Troponin: 0.00 -EKG : 91 NSR w. right atrial enlargement. -COVID-19 : Pending ED INTERVENTIONS: -1g Rocephin IV - 500mg Levaquin IV -1 Liter NS IV overall pt. is tachycardic out of proportion to his baseline HR at all previous visits. CBC is also significantly elevated in relation to his previous baseline. DISPOSITION: at this time pt. will be admitted to Dr. Hinojosa for complicated UTI. Dr. Hinojosa agreed to admit the pt. and to continue pt. care management. Labs Test 04/02/20 14:10 04/02/20 15:14 04/02/20 16:00 Urine Color Pale yellow Urine Appearance Clear Urine pH 5 (4.5-8.0) Urine Specific [place] 1.015 (1.005-1.035) Urine Protein Negative (NEGATIVE) Urine Glucose (UA) Negative (NEGATIVE) Urine Ketones 2+ (NEGATIVE) Urine Blood 3+ (NEGATIVE) Urine Nitrite Positive (NEGATIVE) Urine Bilirubin Negative (NEGATIVE) Urine Urobilinogen Normal MG/DL (0.0-1.0) Urine Leukocyte Esterase 1+ (NEGATIVE) Urine RBC 2-4 /HPF (0 - 0) Urine WBC 5-10 /HPF (0 - 0) Urine Squamous Epithelial Cells Occasional /LPF Urine Bacteria Moderate /HPF (NONE) White Blood Count 22.8 K/UL (4.8-10.8) Red Blood Count 4.07 M/UL (4.70-6.10) Hemoglobin 12.4 G/DL (14.2-18.0) Hematocrit 36.8 % (42.0-52.0) Mean Corpuscular Volume 90 FL (80-99) Mean Corpuscular Hemoglobin 30.5 PG (27.0-31.0) Mean Corpuscular Hemoglobin Concent 33.8 G/DL (32.0-36.0) Red Cell Distribution Width 13.6 % (11.6-14.8) Platelet Count 199 K/UL (150-450) Mean Platelet Volume 7.0 FL (6.5-10.1) Neutrophils (%) (Auto) % (45.0-75.0) Lymphocytes (%) (Auto) % (20.0-45.0) Monocytes (%) (Auto) % (1.0-10.0) Eosinophils (%) (Auto) % (0.0-3.0) Basophils (%) (Auto) % (0.0-2.0) Differential Total Cells Counted 100 Neutrophils % (Manual) 78 % (45-75) Lymphocytes % (Manual) 11 % (20-45) Monocytes % (Manual) 5 % (1-10) Eosinophils % (Manual) 1 % (0-3) Basophils % (Manual) 0 % (0-2) Band Neutrophils 5 % (0-8) Platelet Estimate Adequate Platelet Morphology Normal Red Blood Cell Morphology Normal Sodium Level 137 MMOL/L (136-145) Potassium Level 3.5 MMOL/L (3.5-5.1) Chloride Level 101 MMOL/L (98-107) Carbon Dioxide Level 23 MMOL/L (21-32) Anion Gap 13 mmol/L (5-15) Blood Urea Nitrogen 15 mg/dL (7-18) Creatinine 0.6 MG/DL (0.55-1.30) Estimat Glomerular Filtration Rate > 60 mL/min (>60) Glucose Level 72 MG/DL (74-106) Calcium Level 9.3 MG/DL (8.5-10.1) Troponin I 0.000 ng/mL (0.000-0.056) Lactic Acid Level 0.70 mmol/L (0.4-2.0) (Margaret Toney) ER Course Please see above note. Patient discussed in detail. Labs reviewed. Elevated white count. Agree with admission for IV antibiotics. Contact Dr. Hinojosa. (Yoel Cano MD) EKG Diagnostic Results Troponin ordered: Yes When was troponin ordered?: Apr 02, 2020 EKG Time: 16:35 Rate: normal - 91 BPM Rhythm: NSR ST Segments: no acute changes ASA given to the pt in ED: No PA Scribe Text This Interpretation was scribed by LAWRENCE Toney. (Margaret Toney) Chest X-Ray Diagnostic Results Chest X-Ray Diagnostic Results : Chest X-Ray Ordered: Yes # of Views/Limited/Complete: 1 View Indication: Other - septic work up EP Interpretation: Yes PA Xray: Interpretation reviewed, by supervising MD, and agrees with findings. Interpretation: no consolidation - questionable left lower lobe, no effusion, no pneumothorax, no acute cardiopulmonary disease, other - poor inspiration and positioning. Thoracic scoliosis. Impression: Other - abnormal. Electronically Signed by: Margaret Toney PA-C (Margaret Toney) Chest X-Ray Diagnostic Results : Electronically Signed by: Ning Qureshi documentation of Xray reviewed by me and is accurate, Yoel Cano MD (Yoel Cano MD) Last Vital Signs Date Time Temp Pulse Resp B/P (MAP) Pulse Ox O2 Delivery O2 Flow Rate FiO2 04/02/20 13:37 98.6 101 19 96/75 98 Room Air (Margaret Toney) Last Vital Signs Date Time Temp Pulse Resp B/P (MAP) Pulse Ox O2 Delivery O2 Flow Rate FiO2 04/02/20 22:00 Room Air 04/02/20 21:43 98.5 92 20 105/76 99 Status: improved (Yoel Cano MD) Disposition: ADMITTED INPATIENT Condition: Stable Referrals: NON PHYSICIAN (PCP) Margaret Toney Apr 02, 2020 15:35 Yoel Cano MD Apr 02, 2020 18:27
[2020-04-02 15:40] LABS: HEMATOCRIT 36.8 % (42.0-52.0); HEMOGLOBIN 12.4 G/DL (14.2-18.0); MEAN CORPUSCULAR VOLUME 90 FL (80-99); PLATELET COUNT 199 K/UL (150-450); RED BLOOD COUNT 4.07 M/UL (4.70-6.10); RED CELL DISTRIBUTION WIDTH 13.6 % (11.6-14.8)
[2020-04-02 15:42] LABS: WHITE BLOOD COUNT 22.8 K/UL (4.8-10.8)
[2020-04-02 15:55] LABS: ANION GAP 13 mmol/L (5-15); BLOOD UREA NITROGEN 15 mg/dL (7-18); CALCIUM 9.3 MG/DL (8.5-10.1); CARBON DIOXIDE 23 MMOL/L (21-32); CHLORIDE 101 MMOL/L (98-107); CREATININE 0.6 MG/DL (0.55-1.30); POTASSIUM 3.5 MMOL/L (3.5-5.1); SODIUM 137 MMOL/L (136-145)
--- NOTE | 2020-04-02 16:58 | Diagnostic Imaging Report ---
Indication: Weakness Technique: Portable AP view of the chest Comparison: 05/07/2018 Findings: Limited evaluation was somewhat helpful positioning. Thoracic scoliosis is again seen. Heart size and mediastinal contours appear stable. There is some apparent retrocardiac opacities. No significant pleural effusion. No pneumothorax. Cervical fixation hardware is noted. No appreciable acute osseous abnormality. Impression: Limited evaluation was suboptimal positioning. Question retrocardiac infiltrate versus atelectasis. This may also be artifactual given scoliosis and positioning. Correlation with clinical findings recommended.
--- NOTE | 2020-04-02 18:28 | NUR ---
ED Nurse Note: Pt was placed on bed 2.
[2020-04-02 18:44] VITALS: BP 100/78
--- NOTE | 2020-04-02 19:14 | NUR ---
ED Nurse Note: Report received from DARRYN ROSADO
--- NOTE | 2020-04-02 21:20 | NUR ---
ED Nurse Note: Report given to Brigette ROSADO
--- NOTE | 2020-04-02 21:30 | NUR ---
TRANSFER TO FLOOR: Patient transferred to [facility] at rm [id number] via pts electric wheelchair accompanied by RN and cytopathology technologist. Belongings checked and given to RN. Patient transferred safely to bed and endorsed to RN
--- NOTE | 2020-04-02 21:37 | NUR ---
Nurses Notes Pt has healed wounds to sacral area.
--- NOTE | 2020-04-02 21:37 | NUR ---
Report given by Ish ROSADO from ER pt arrived on [facility] escorted by ER staff in stable condition.Pt AAOx4 able to make needs known no acute distress noted pt on room air. Mariscal intact patent and draining, IV to right and left hand intact and patent. COVID precautions enforced and maintained. Pt has belongings at bedside. Pt instructed to call nurse for assistance. call light in reach bed in lowest position. will continue to monitor for care and treatment as ordered.
[2020-04-02] MEDS ORDERED: BISACODYL5 MG ORAL (21:50)
[2020-04-02] MEDS ORDERED: FLOMAX0.4 MG ORAL (21:50)
[2020-04-03] VITALS: BP 118/52
[2020-04-03 04:00] VITALS: BP 141/72
[2020-04-03] MEDS ORDERED: Piperacillin/Tazobactam 3.375 GM in NS 110 ML IVPB SCH (06:00)
--- NOTE | 2020-04-03 07:33 | NUR ---
NURSE NOTES: Report received from Joleen ROSADO, rounds made. Patient AOx4 calm. Respirations even/unlabored on RA. Right FA and Left wrists, saline lock, site asymptomatic. Condom cath on, urine fela clear to drainage bag. Skin precautions, will turn every 2 hours. Feed meals. Plans for discharge after 1600 IV antibiotic, patient aware. Call light in reach (patient uses pencil with mouth to press call light and use cell phone), bed in lowest position, will continue to monitor.
--- NOTE | 2020-04-03 07:46 | NUR ---
report given to Tina
--- NOTE | 2020-04-03 07:49 | NUR ---
CASE MANAGEMENT:REVIEW 54 YR OLD MALE PRESENTED TO ER IN ELECTRIC WHEEL CHAIR CC: PAINFUL URINATION. URINE CLOUDY X1 WEEK SI: UTI. NEUROGENIC BLADDER. QUADRIPLEGIA 98.6 101 19 96/75 98% ON RA WBC+22.8 GLUCOSE-72 IS: IV ROCEPHIN X1 IV LEVAQUIN X1 1L NS BOLUS X1 : TO MED/SURG UNIT 04/03/20 DISCHARGE HOME WITH PRESCRIPTION FOR KEFLEX
[2020-04-03 08:00] VITALS: BP 110/76
[2020-04-03] MEDS: Piperacillin/Tazobactam 3.375 GM in NS 110 ML IVPB SCH ×2 (08:19→15:44)
[2020-04-03] MEDS ORDERED: Heparin 5000 units/ml inj SUBQ SCH (09:00)
--- NOTE | 2020-04-03 10:24 | NUR ---
CHARGE NURSE note: WBC. 22.8. Pt will be discharged today. was called for clarification. He said OK to discharge patient after IV antibiotics given today. Primary nurse Tina Bryan RN aware.
[2020-04-03 12:00] VITALS: BP 128/88
--- NOTE | 2020-04-03 13:00 | NUR ---
NURSE NOTES: Spoke to lab regarding pending COVID, results still pending.
--- NOTE | 2020-04-03 13:36 | NUR ---
NURSE NOTES: Discharge supplies provided per patient request, x2 hickman drainage bags (has condom cath pieces already at home) and handful of size large gloves. Reviewed with patient,left at bedside with other personal belongings, patient aware. Addendum: 04/03/20 at 1837 by Tina Carlson RN Leg bag x2 as well.
--- NOTE | 2020-04-03 14:09 | NUR ---
NURSE NOTES: Spoke with patient's girlfriend, Nilesh, regarding patient current status and discharge plans for tonight. 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 Will prepare discharge instructions/prescription x1 and endorse girlfriend contact number to night worker.
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
[2020-04-03 16:00] VITALS: BP 132/85
--- NOTE | 2020-04-03 18:34 | NUR ---
NURSE NOTES: Spoke with patient's girlfriend, she lives 3 minutes away from [facility], would like to be called once patient is ready and transferred in his electric wheelchair, will endorse to production shift supervisor. Instructed her on antibiotic RX that will be in patient's discharge folder, plans to drop off to pharmacy tonight or early in AM tomorrow.
--- NOTE | 2020-04-03 19:35 | NUR ---
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 Vital Sign Comment: none Latest Fowler Fall Score: 55 Fall Risk: High Risk Safety Measures: Call light Within Reach, Bed Alarm , Side Rails Side Rails x3, Bed position Low and Locked. Fall Precautions: Yellow Socks Yellow Gown Door Sign Patient Fall Education Report given to Maverick ROSADO.
[2020-04-03 20:00] VITALS: BP 133/91
[2020-04-03] MEDS ORDERED: Tubing IV Secondary IV ONE (21:09)
[2020-04-03] MEDS ORDERED: NS 275ml ONE (21:09)
--- NOTE | 2020-04-03 21:10 | NUR ---
NURSE NOTES: Pt is discharged home via private vehicle with as ordered by the doctor. Vitals stable. Pt is awake,alert and verbal. All belongings sent with patient, discharge instruction and prescription also given to patient. Pt is unable to sign discharge paperwork as he is quadriplegic. IV access removed. Pt was accompanied downstairs in patient's electric wheelchair.
--- NOTE | 2020-04-04 16:08 | NUR ---
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 Received call from microbiology that Pt's Blood culture came back positive Gram+ cocci. was notified.
--- NOTE | 2020-04-06 14:29 | Discharge Summary ---
Discharge Summary Discharge Summary _ Date of admission: 04/02/2020 Date of discharge: 04/03/[address] Hinojosa History of Present Illness and Brief Hospital Course Mr. Hill is a 55-year-old male with past medical history of quadriplegia and wheelchair, frequent UTIs who presented to the ED in electric wheelchair for evaluation of cloudy, malodorous urine x2 days. Patient was noted to be on chronic condom catheter. His urinalysis was positive for nitrite and moderate bacteria. His initial laboratory studies were markable for leukocytosis, and negative troponin. Patient was treated with Rocephin, Levaquin and IV fluids in the ER and was admitted to the hospital for further management. Patient's urine culture grew E. coli. Patient tested negative for COVID-19 via PCR. On the next day, patient requested to be discharged on oral therapy stating that he almost always is treated with ciprofloxacin that has been effective for his past UTIs. He stated that he would return to the hospital if his symptoms recur. Patient is to follow-up with his PMD. Patient was medically stable for discharge and was discharged on oral ciprofloxacin and tamsulosin. Consultants: None Discharge Condition Stable Final diagnoses E. coli UTI Leukocytosis I have been assigned to dictate discharge summary for this account. I was not involved in the patient's management Kwadwo Chavira Apr 06, 2020 14:29
== END 2020-04-03 21:10 | disposition home or self-care (01) | DRG 463 ==
LOC: EMR 13:55 → 4E 18:07 → EDBEDREQ 20:33 → 4E 22:56
DX: N39.0 Urinary tract infection, site not specified (principal); G82.50 Quadriplegia, unspecified; V89.2XXS Person injured in unspecified motor-vehicle accident, traffic, sequela; B96.20 Unspecified Escherichia coli [E. coli] as the cause of diseases classified elsewhere; Z99.3 Dependence on wheelchair
CPT/HCPCS: 36415; 71045; 80048; 81003; 83605; 84484; 85007; 85025; 87040; 87086; 87181; 93005; 96361; 96365; 96367; 99285; J7030